=== PATIENT | female | born 1985 | race Caucasian/White ===

== ENCOUNTER 2019-07-13 17:27 | Emergency (ER) | payer OTHER ==
[~2019-07-13] VITALS: Ht 154.9 cm; Wt 95.3 kg
[~2019-07-13 17:27] MED LIST: CELEXA10 MG PO; FLAGYL500 MG PO; IBUPROFEN 800800 M1 PO; KEFLEX500 M1 PO; LIORESAL 10 MG10 MG PO; PYRIDIUM100 M1 PO; ROBAXIN500 MG PO; VITAMINS; ZOFRAN ODT4 MG PO
[2019-07-13 18:49] VITALS: BP 117/69
[2019-07-13] MEDS ORDERED: ONDANSETRON HCL4 M2 PO (18:49)
== END 2019-07-13 18:55 | disposition home or self-care (01) ==
LOC: ER 17:27
DX: S09.90XA Unspecified injury of head, initial encounter (principal); Z88.6 Allergy status to analgesic agent; Z88.8 Allergy status to other drugs, medicaments and biological substances; W21.02XA Struck by soccer ball, initial encounter; Y93.89 Activity, other specified; Y92.89 Other specified places as the place of occurrence of the external cause; Y99.8 Other external cause status